=== PATIENT | female | born 1940 | race African-American/Black ===

== ENCOUNTER 2016-11-14 09:56 | Emergency (ER) | payer OTHER, BC ==
[~2016-11-14] VITALS: Ht 170.2 cm; Wt 80.7 kg
--- NOTE | ~2016-11-14 | EKG ---
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 : 1940 Requested By: Jovani Zamora Order Number: [id number] MD: Delano Robin Measurements Intervals [place] Rate: 97 P: 240 SD: 210 QRS: -30 QRSD: 98 T: 149 QT: 355 QTc: 451 Interpretive Statements Sinus or ectopic atrial rhythm Borderline prolonged SD interval Abnormal R-wave progression, early transition LVH with secondary repolarization abnormality Compared to ECG 02/01/2016 17:47:00 no significant change was found Electronically Signed On 11-15-2016 8:48:06 CDT by Delano Robin [email or web address] <ELECTRONICALLY SIGNED> By: Delano Robin MD, [facility] 11/15/16 0848 1012 1012 Delano Robin MD, [facility] /EPI
[~2016-11-14 09:56] MED LIST: ACETAMINOPHEN325 M1 PO; ALEVE220 MG PO; AMBIEN 10 MG TA10 MG PO; AMBIEN 5 MG TABL5 M1 PO; APAP500; APAP500 PO; ASA81BEC PO; ATORVASTATIN CA10 MG PO; AZO CRANBERRY250 MG PO; BACTRIM DS TAB1 EACH PO; BENADRYL25 MG PO; BISACODYL SUPP10 MG RECTAL; BYSTOLIC 5 MG5 M1 PO; BYSTOLIC20 MG PO; CADUET 10 MG-11 EACH PO; CADUET 5 MG-101 EACH PO; CEFTIN 250 MG250 MG; CEFTIN 250 MG250 MG PO; CENTRUM SILVER1 EAC4 PO; CIPRO250 M1 PO; CLONIDINE HCL0.3 M2 PO; CLONIDINE HCL0.3 M3 PO; COLACE100 MG PO; COUMADIN 4 MG TA4 M1 PO; COUMADIN 5 MG TA5 M1 PO; COZAAR 50 MG TA50 M2 PO; CYMBALTA30 MG PO; DESYREL PO; DIABETA PO; DILAUDID 2 MG TA2 MG PO; DILAUDID 4 MG TA4 M1 PO; DILAUDID 4 MG TA4 MG PO; DIOVAN PO; DIOVAN320 MG PO; DOXYCYCLINE 10100 MG PO; EFFEXOR PO; EFFEXOR XR150 MG PO; EFFEXOR XR75 MG PO; ENOXAPARIN40 MG/0.1 SUBQ; EXCELON PATCH; EXELON 9.5 MG9.5 MG TD; EXELON1 EACH TD; FLAGYL500 M1 PO; FLORANEX PACKET1 GM PO; GLYBURID-METFO1 EAC3 PO; GRALISE600 MG PO; HYDRALAZINE 2525 MG PO; HYDROXYZINE HCL10 M1 PO; IMDUR 60 MG TAB60 M1 PO; INTRATHECAL MED; INTRATHECAL MED INTRATHECA; IRON325 PO; KEFLEX500 MG PO; KLOR-CON 1010 MEQ PO; LANTUS SUBQ; LASIX 40 MG TAB40 M2 PO; LEVAQUIN 500 M500 M2 PO; LEVEMIR SUBQ; LEVEMIR100 UNIT/1 SUBQ; LIORESAL 10 MG10 MG PO; LIPITOR10 MG PO; LOW DOSE ASPIRI81 M1 PO; LYRICA PO; LYRICA100 MG PO; MAG-AL PLUS SUS30 ML PO; MEDROLDOSEPACK PO; MICONAZOLE NITR45 G1 TOP; MILK OF MA2400 MG/10 PO; MIRALAX17 GM PO; MULTIVITAMINS PO; NEPHROCAPS SOFT1 CAP PO; NORVASC10 MG PO; NORVASC5 MG PO; NOVOLIN R100 UNIT/3; NOVOLOG100 UNIT/1 SUBQ; OXYCONTIN10 M1 PO; OXYCONTIN10 MG PO; POTASSIUM20 PO; PROTONIX40 M1 PO; SENNA PO; SENNA8.6 MG PO; SEROQUEL 50 MG50 MG PO; SILVADENE20 GM TOP; THERA-M CAPLET1 EACH PO; TRAMADOL 50 MG50 MG PO; TRANDATE 200 M200 MG PO; TRAZODONE HCL100 MG PO; TRIAMCINOLONE A80 G2 TOP; TYLENOL325 MG PO; VAN500AD IV; VITAMINC500 PO; VOLTAREN GEL 1100 G1 TOP; VOLTAREN GEL 1100 G2 TOP; XARELTO15 MG; ZANAFLEX4 MG PO; ZYVOX600 MG PO
[2016-11-14] MEDS ORDERED: CARVEDILOL12.5 MG PO (10:11)
[2016-11-14] MEDS ORDERED: LASIX 40 MG TAB40 M2 PO (10:14)
[2016-11-14] MEDS ORDERED: ARICEPT 5 MG TAB5 MG PO (10:14)
[2016-11-14] MEDS ORDERED: DIPHENHYDRAMINE25 M3 PO (10:15)
[2016-11-14 10:37] LABS: ABSOLUTE NEUTROPHILS 8.9 thou/uL (1.4-8.2); BASOPHILS 1.1 % (0.0-2.0); EOSINOPHILS 2.4 % (0.0-3.0); HEMATOCRIT 31.1 % (37.0-47.0); HEMOGLOBIN 10.2 gm/dL (12.0-15.0); LYMPHOCYTES 13.3 % (24.0-44.0); MANUAL DIFF NO; MCH 29.8 pg (26.0-34.0); MCHC 32.9 g/dL (28.0-37.0); MCV 90.5 fL (80.0-100.0); PLATELET COUNT 322 thou/uL (150-400); POLYS 72.2 % (36.0-66.0); RBC 3.44 mil/uL (4.20-5.00); WBC 12.3 thou/uL (4.0-11.0)
[2016-11-14 10:44] LABS: CALCIUM 8.9 mg/dL (8.5-10.1); CREATININE 4.1 mg/dL (0.6-1.0); POTASSIUM 3.8 mmol/L (3.5-5.1)
[2016-11-14 10:52] LABS: APTT 41.8 Seconds (24.5-32.8); INR 2.3; PROTIME 23.7 Seconds (9.3-11.4)
[2016-11-14 10:56] LABS: TROPONIN-I 0.07 ng/mL (<0.04-0.07)
[2016-11-14 13:19] LABS: URINE BILIRUBIN NEGATIVE (Negative); URINE BLOOD 2+ (Negative); URINE COLOR YELLOW; URINE GLUCOSE-RANDOM* TRACE (Negative); URINE KETONES NEGATIVE (Negative); URINE NITRITE NEGATIVE (Negative); URINE PROTEIN (DIPSTICK) 2+ (Negative); URINE SPECIFIC GRAVITY 1.015 (1.003-1.035); URINE UROBILINOGEN 0.2 E.U./dl (0.2-1.0)
[2016-11-14 13:31] LABS: BACTERIA >30 Many /HPF (None Seen); CASTS None Seen /LPF (None Seen); CRYSTALS None Seen /LPF (None Seen); SQUAMOUS 0-3 Few /LPF (0-3); URINE RBC 3-10 Few /HPF (0-2); URINE WBC 6-15 Few /HPF (0-5)
[2016-11-14] MEDS ORDERED: MACROBID 100 M100 M1 PO (13:54)
[2016-11-14] MEDS ORDERED: DOXYCYCLINE 10100 MG PO (14:00)
[2016-11-14 15:05] VITALS: BP 176/48
== END 2016-11-14 15:31 | disposition short-term general hospital (02) ==
LOC: ER 09:56
PROVIDERS: Nurse Practitioner
DX: N39.0 Urinary tract infection, site not specified (principal); I13.10 Hypertensive heart and chronic kidney disease without heart failure, with stage 1 through stage 4 chronic kidney disease, or unspecified chronic kidney disease; E11.22 Type 2 diabetes mellitus with diabetic chronic kidney disease; N18.3 Chronic kidney disease, stage 3 (moderate); E78.00 Pure hypercholesterolemia, unspecified; F32.9 Major depressive disorder, single episode, unspecified; K21.9 Gastro-esophageal reflux disease without esophagitis; Z79.4 Long term (current) use of insulin; Z90.710 Acquired absence of both cervix and uterus; Z90.49 Acquired absence of other specified parts of digestive tract; Z96.651 Presence of right artificial knee joint; Z98.890 Other specified postprocedural states; Z86.718 Personal history of other venous thrombosis and embolism; F03.90 Unspecified dementia, unspecified severity, without behavioral disturbance, psychotic disturbance, mood disturbance, and anxiety; Z88.1 Allergy status to other antibiotic agents; Z88.8 Allergy status to other drugs, medicaments and biological substances

== ENCOUNTER → 2018-03-20 | Outpatient (CLI) | payer OTHER, BC ==
[~2018-03-20] MED LIST changes: +ARICEPT 5 MG TAB5 MG PO; +CARVEDILOL12.5 MG PO; +DIPHENHYDRAMINE25 M3 PO; +MACROBID 100 M100 M1 PO
== END ==
LOC: HYPER 07:21
DX: E11.622 Type 2 diabetes mellitus with other skin ulcer (principal); L89.322 Pressure ulcer of left buttock, stage 2; L89.312 Pressure ulcer of right buttock, stage 2; L98.411 Non-pressure chronic ulcer of buttock limited to breakdown of skin; E11.621 Type 2 diabetes mellitus with foot ulcer; L89.624 Pressure ulcer of left heel, stage 4; L97.422 Non-pressure chronic ulcer of left heel and midfoot with fat layer exposed; E11.22 Type 2 diabetes mellitus with diabetic chronic kidney disease; I13.2 Hypertensive heart and chronic kidney disease with heart failure and with stage 5 chronic kidney disease, or end stage renal disease; I50.9 Heart failure, unspecified; N18.4 Chronic kidney disease, stage 4 (severe); I82.499 Acute embolism and thrombosis of other specified deep vein of unspecified lower extremity; D63.1 Anemia in chronic kidney disease; G82.20 Paraplegia, unspecified; I25.10 Atherosclerotic heart disease of native coronary artery without angina pectoris; M19.90 Unspecified osteoarthritis, unspecified site; F03.90 Unspecified dementia, unspecified severity, without behavioral disturbance, psychotic disturbance, mood disturbance, and anxiety; F33.9 Major depressive disorder, recurrent, unspecified; Z73.6 Limitation of activities due to disability; Z79.84 Long term (current) use of oral hypoglycemic drugs; Z99.2 Dependence on renal dialysis; Z79.4 Long term (current) use of insulin

== ENCOUNTER 2018-04-03 15:24 | Inpatient (IN) | payer OTHER, BC ==
[~2018-04-03] VITALS: Ht 170.2 cm; Wt 88.5 kg
--- NOTE | ~2018-04-03 | HC ---
[facility] [place] [address] [place] [address] CONSULTATION Name: ANGELITA MELISSA Room #: 212-P ADM IN M.R.#: [id number] Admission: 04/03/18 Attend Phys: Javi Meyer MD Discharge: Date of : 38 Report #: [id number] THIS REPORT FOR: //name// CC: Wilbert Hernández DATE OF SERVICE: 04/04/2018 CHIEF COMPLAINT: Sacral gluteal and right heel pressure ulceration. HISTORY OF PRESENT ILLNESS: This is a 77-year-old female patient whom I have seen in the past. She has had increased pain to the sacral gluteal region presented to the Emergency Department and was admitted for further evaluation. She was also noted to have a worsening ulcer of her left heel and I have been asked to see her with regard to wound care. She has been seen by my partner, Dr. Hernández, last seen approximately 2 weeks ago. PAST MEDICAL HISTORY: Positive for multiple back surgeries, previous closed head injury, cholecystectomy, right knee replacement, chronic kidney disease requiring hemodialysis, dementia, DVT, chronic pain, depression, diabetes, thalassemia minor, previous hysterectomy, chronic anemia and gastroesophageal reflux. SOCIAL HISTORY: Negative for alcohol or tobacco use. She is , accompanied by her . FAMILY HISTORY: Unremarkable. MEDICATIONS: Include ascorbic acid, trazodone, Coumadin, carvedilol, Aricept, gabapentin, losartan, venlafaxine, Depakote, hydralazine and olanzapine. ALLERGIES: Include ZOLPIDEM, AMITRIPTYLINE, METHADONE, METOCLOPRAMIDE, LEVAQUIN, CELEBREX, ARIPIPRAZOLE, PIROXICAM and HYDROCHLOROTHIAZIDE. REVIEW OF SYSTEMS: CONSTITUTIONAL: The patient has had some fever and chills. EARS, NOSE AND THROAT: The patient denies earache, nasal drainage or sore throat. EYES: The patient denies any visual changes, redness or drainage. ENT: The patient denies earache, nasal drainage or sore throat. CARDIOVASCULAR: No chest pain, palpitations or diaphoresis. PULMONARY: The patient denies cough or shortness of breath. GASTROINTESTINAL: The patient denies nausea or abdominal pain. ORTHOPEDIC: The patient complains of pain in the sacral gluteal region as well [address] [address] CONSULTATION Name: ANGELITA MELISSA Room #: 212-P [facility] IN M.R.#: [id number] Admission: 04/03/18 Attend Phys: Javi Meyer MD Discharge: Date of : 38 Report #: [id number] as note some discomfort in her left heel area. Other systems in a 14-point review of systems are negative. PHYSICAL EXAMINATION: VITAL SIGNS: At this time include temperature is 36.8, pulse 81, respiration of 18 and blood pressure 117/30. GENERAL: This is a chronically ill-appearing female patient who appears to be in moderate discomfort. HEENT: Head normocephalic. Nose and throat are clear. NECK: Supple. LUNGS: Clear. HEART: Irregular without murmur. ABDOMEN: Soft. Bowel sounds present. Sacral gluteal region demonstrates scattered ulcerations across the sacral gluteal region and some of this is moisture-associated dermatitis. There may be some stage 2 and stage 3 pressure ulceration component to this as well. EXTREMITIES: Lower extremities demonstrate a foul smelling area involving her left posterior heel. There is a little bit of granulation in the center moderate eschar surrounding. NEUROLOGICAL: The patient is alert and does move all 4 extremities spontaneously. LABORATORY DATA: Includes white blood cell count of 10.1, hemoglobin is 6.0 and hematocrit of 18.4. Sodium 133, potassium 5.4, chloride 98, BUN 40 and creatinine 3.9. Total protein is 6.9. Albumin is low at 2.3. INR is elevated at 7.9. RADIOLOGICAL DATA: X-ray evaluation of the left foot demonstrates underlying osteomyelitis being difficult to exclude. There is thickening and irregularity to the posterior and plantar calcaneus. MRI demonstrates an abnormal signal through the posterior root of the calcaneus consistent with osteomyelitis. This area of osteomyelitis involving the Achilles tendon insertion felt to represent partial tearing from infection, soft tissue edema extends to the posterior and lateral soft tissues from soft tissue infection. CLINICAL IMPRESSION: 1. Moisture-associated dermatitis and stage 3 pressure ulcer of the sacral gluteal region bilaterally. 2. Stage 4 pressure ulceration to the left posterior heel with underlying calcaneal osteomyelitis. 3. No evidence of obvious peripheral arterial disease based on lower extremity ultrasound showing multiphasic bilateral arterial blood flow without evidence of significant stenosis. 4. Uncontrolled diabetes mellitus. 5. Severe anemia. [address] [address] CONSULTATION Name: ANGELITA MELISSA Room #: 212-P ADM IN M.R.#: [id number] Admission: 04/03/18 Attend Phys: Javi Meyer MD Discharge: Date of : 38 Report #: [id number] 6. Moderate protein-calorie malnutrition. RECOMMENDATIONS: At this point in time, we will recommend Silvadene-morphine, compound mixed with zinc oxide to the sacral gluteal regions to be applied 3 times per day and as needed. We will need local care to the heel, Dakin's moist gauze dressing would be appropriate for now. She will likely require some surgical debridement of the heel and calcaneus. She may ultimately require below-knee amputation. There appears to be no suggestion that any vascular intervention is required at this time, she will need aggressive nutritional support and intravenous antibiotics have been started. She is about to begin dialysis tonight and I have discussed her care with nurses at the bedside as well discussed details with Dr. Tim Millan. I appreciate being asked to see her in consultation. <ELECTRONICALLY SIGNED> By: Arturo Collins MD 04/07/18 0018 2040 [id number] Arturo Collins MD /nt
--- NOTE | ~2018-04-03 | HC ---
[facility] [place] [address] [place] [address] CONSULTATION Name: ANGELITA MELISSA Room #: 212-P ADM IN M.R.#: [id number] Admission: 04/03/18 Attend Phys: Javi Meyer MD Discharge: Date of : 38 Report #: [id number] THIS REPORT FOR: //name// CC: Wilbert Hernández REASON FOR CONSULTATION: End-stage renal disease. REASON FOR PRESENTATION: Wound check. HISTORY OF PRESENT ILLNESS: This is a very well-known patient to me. She is a 77-year-old with end-stage renal disease due to long-standing diabetes mellitus and hypertension. She is maintained on dialysis, utilizing a right IJ tunneled catheter. She is known to have peripheral vascular disease. She is also known to have bilateral chronic heel ulcers, osteomyelitis on the left side for which she required prolonged hospitalizations at [facility] and then was in a long-term facility receiving antibiotic and got discharged home. She was in her wound clinic yesterday and was advised to visit with the Emergency Room, given the way the wounds looked. It does look like that she has gangrenous changes with blackish discoloration on the left heel. She is wheelchair-ridden. She denies any fever or chills. The patient has a very complicated and rough course at [facility]. She ended up with an ischemic left index and had this amputated. She also had ligation of her AV fistula. She is being currently admitted to further evaluate her wounds and decide about further plans. She is anemic with a hemoglobin of 6.8. I am being consulted to manage her end-stage renal disease issues. PAST MEDICAL HISTORY: 1. Diabetes mellitus. 2. Hypertension. 3. End-stage renal disease, maintained on hemodialysis every Monday, Monday and Monday. 4. Peripheral vascular disease. 5. Recent osteomyelitis of the left heel. 6. DVT. 7. Ischemic left index finger. 8. Chronic pain with an implanted pain pump, status post removal. 9. Back surgeries. 10. Rotator cuff surgery. 11. Right knee replacement. 12. Depression. 13. Thalassemia minor. 14. Hysterectomy. 15. Umbilical hernia repair. [address] [address] CONSULTATION Name: ANGELITA MELISSA Room #: 212-P [facility] IN M.R.#: [id number] Admission: 04/03/18 Attend Phys: Javi Meyer MD Discharge: Date of : 38 Report #: [id number] FAMILY HISTORY: No known end-stage renal disease in the family. SOCIAL HISTORY: She resides with her . No drug or alcohol abuse. HOME MEDICATIONS: 1. Warfarin. 2. Hydralazine. 3. Carvedilol. 4. Gabapentin. 5. Levemir insulin. 6. Losartan. REVIEW OF SYSTEMS: GENERAL: No fever or chills. CARDIOVASCULAR: No chest pain or palpitation. PULMONARY: No cough or hemoptysis. GASTROINTESTINAL: No nausea or vomiting. MUSCULOSKELETAL: As per the history of present illness. PHYSICAL EXAMINATION: GENERAL: She is alert, oriented, in no apparent distress. VITAL SIGNS: Blood pressure is 107/49. Temperature 36.8. HEAD AND NECK: No jugular venous distention. CHEST: Right IJ tunneled catheter. CARDIOVASCULAR: No rub detected, soft systolic murmur is present. ABDOMEN: Soft, nontender. LOWER EXTREMITIES: +3 edema. Dressing applied over the left ankle. I did not examine her wounds; however, I looked at the documented pictures taken by the wound care and saved in file. LABORATORY DATA: Reviewed. Hemoglobin 6.8, white blood cell count 11.3. Sodium 131, BUN is 35, creatinine is 3.6. ASSESSMENT, IMPRESSION AND PLAN: 1. End-stage renal disease. 2. Chronic wounds. 3. Osteomyelitis of the left ankle. 4. Peripheral vascular disease. 5. Deep venous thrombosis. 6. Status post ligation of left AV fistula with an ischemic index finger. 7. Dementia. 8. Chronic pain. 9. Anemia. 10. We will arrange for the patient to have her usual dialysis today. 11. Transfuse with 1 unit of blood. 12. Wound care evaluation. [address] [address] CONSULTATION Name: ANGELITA MELISSA Room #: 212-P [facility] IN M.R.#: [id number] Admission: 04/03/18 Attend Phys: Javi Meyer MD Discharge: Date of : 38 Report #: [id number] 13. We will have to make an ultimate plan for her wounds given the extensive history, osteomyelitis, will likely need an amputation; however, we will defer the decision to the admitting team and wound care. By: 0723 0746 Velia Tobar MD /nt
--- NOTE | ~2018-04-03 | O ---
[facility] [place] [address] [address] OPERATIVE REPORT Name: ANGELITA MELISSA Room #: 212-P ADM IN M.R.#: [id number] Admission: 04/03/18 Attend Phys: Javi Meyer MD Discharge: Date of : 38 Report #: [id number] THIS REPORT FOR: //name// CC: Wilbert Hernández DATE OF SERVICE: 04/06/2018 PREOPERATIVE DIAGNOSIS: Chronic infected left heel ulcer with associated osteomyelitis. POSTOPERATIVE DIAGNOSIS: Chronic infected left heel ulcer with associated osteomyelitis. PROCEDURE: Soft tissue and bony debridement of left heel ulcer. SURGEON: Hung Marquez MD. INDICATIONS: This frail 77-year-old female with chronic renal disease and on chronic dialysis has problems with skin breakdown and ulcers in several areas. The principal problem involves the left heel where she has a chronic soft tissue ulcer with bony exposure and probably some osteomyelitis. This issue has been discussed with the patient and her and I believe they have reviewed the option of below-knee amputation. At this point, the patient and are reluctant to consider amputation and wished to try to continue more conservative management. I have been asked to see the patient for surgical debridement. I discussed with the patient and her that it is quite unlikely this will ever heal and completely, but we can certainly clean up the necrotic debris and see whether we can establish a wound, which is at least a clean and minimally infected, which might be manageable. Eventually, I think below knee amputation is the only reasonable option. They seem to understand, but wished to proceed with a limited debridement today. DESCRIPTION OF PROCEDURE: The patient was taken to the operating room where she was placed under brief anesthetic. She was turned to the right lateral decubitus position. The left lower leg, foot and ankle were thoroughly prepped and draped. The current preoperative ulcer is about 6-8 cm in diameter with a rim of necrotic skin and subcutaneous tissue. This necrotic skin and subcutaneous tissue was excised back to a bleeding margin of skin. This created a total ulcer size of about 10 cm in diameter. In the midportion, the posterior calcaneus is exposed. Some of the superficial periosteum and soft tissue in this region was clearly necrotic and was excised. About 5 mm of bone was also excised from the calcaneus getting down into a better bleeding subcortical level [address] [address] OPERATIVE REPORT Name: BELÉNANGELITA OLIVIER Room #: 212-P ADM IN M.R.#: [id number] Admission: 04/03/18 Attend Phys: Javi Meyer MD Discharge: Date of : 38 Report #: [id number] of bone. This area of bone seems to be well perfused and does not seem to be significantly involved with infection. The wound was aggressively irrigated. The surrounding subcutaneous tissues were elevated to some extent from the bone trying to allow this to close over the exposed bone to some extent if possible. I felt the best approach at this point was for a wound VAC wound management process. A wound VAC was applied and then, this was overdressed with multiple layers of soft cotton soft roll dressing and a loosely applied [place] wrap. The patient was awakened and returned to recovery room in good condition. <ELECTRONICALLY SIGNED> By: Hung Marquez MD 04/10/18 0755 1412 1446 Hung Marquez MD /nt
--- NOTE | ~2018-04-03 | HC ---
[facility] [place] [address] [address] CONSULTATION Name: ANGELITA MELISSA Room #: 212-P ADM IN M.R.#: [id number] Admission: 04/03/18 Attend Phys: Javi Meyer MD Discharge: Date of : 38 Report #: [id number] THIS REPORT FOR: //name// CC: Wilbert Hernández DATE OF SERVICE: 04/05/2018 REASON FOR CONSULTATION: Left calcaneus osteomyelitis. HISTORY OF PRESENT ILLNESS: The patient is a 77-year-old female with chronic end-stage renal disease who was brought in to the Emergency Department by her . The history is obtained per the patient's as she is sleepy and does not respond to my examination. She apparently was at [facility] for about 5 weeks, then went home for a week or two, which her was changing her dressing and he noticed a black discoloration and foul odor along with home health nursing noticed this as well. She has been also followed by Dr. Parvez Hernández. REVIEW OF SYSTEMS: MUSCULOSKELETAL: Denies other extremity complaints. NEUROLOGIC: Denies numbness or tingling. Again, this history is obtained from the patient's . PAST MEDICAL HISTORY: Significant for end-stage renal disease. I believe she has a history of dementia, history of methicillin-resistant Staphylococcus aureus, hypertension. ALLERGIES: AMITRIPTYLINE, ARIPIPRAZOLE, CELEBREX, HYDROCHLOROTHIAZIDE, LEVOFLOXACIN, METHADONE, METOCLOPRAMIDE, PIROXICAM AND ZOLPIDEM. MEDICATIONS: The patient's MAR was reviewed, which shows trazodone, olanzapine, insulin, donepezil, vitamin K, Coumadin, Silvadene, fentanyl, vancomycin, venlafaxine, gabapentin, valproic sodium, ascorbic acid, piperacillin/tazobactam, ondansetron. PAST SURGICAL HISTORY: Pain pump implantation, back surgeries x 2, rotator cuff surgery, cholecystectomy, right knee replacement, hysterectomy. SOCIAL HISTORY: The is at her bedside, she is . She does not ambulate and has not ambulated for a year, has no smoking history. LABORATORY DATA: Done on 04/05/2018 show white blood cell count 13.5, hemoglobin 6.8, hematocrit 20.4, platelet count 349. INR is 4.3. Chemistry is [address] [address] CONSULTATION Name: ANGELITA MELISSA Room #: 212-P [facility] IN ..#: [id number] Admission: 04/03/18 Attend Phys: Javi Meyer MD Discharge: Date of : 38 Report #: [id number] grossly abnormal. PHYSICAL EXAMINATION: GENERAL: The patient is sleepy. She does not respond. VITAL SIGNS: Temperature is 36.8, heart rate 87, respiratory rate 18, blood pressure 105/44, and pulse oximetry is 100%. EXTREMITIES: Examination of her left lower extremity shows a wound measuring approximately 5 cm with necrosis and foul odor. DIAGNOSTIC DATA: Three views, AP, lateral and oblique, of the left foot show diffuse bony changes in the hindfoot and midfoot. MRI of the foot shows osteomyelitis involving the calcaneus. The MRI was reviewed by myself as well as report. IMPRESSION AND PLAN: Left heel osteomyelitis. She is currently on antibiotics. Her INR today was 4.3. We will tentatively put her on the surgery schedule for tomorrow; however, we will require her INR to be more therapeutic in order to avoid significant complications. I discussed the options of debridement or amputation. The wishes to proceed with debridement. My partner, Dr. Hung Marquez, may perform the debridement tomorrow or I may perform this weekend depending on her laboratory status. Thank you very much for allowing me to participate in the care of this patient. I will tentatively make her n.p.o. after midnight. By: 1527 1737 Lizbeth Smith MD /nt
[2018-04-03 15:27] VITALS: BP 92/44
[2018-04-03] MEDS ORDERED: GABAPENTIN 100100 MG PO (16:10)
[2018-04-03] MEDS ORDERED: LOSARTAN POTAS100 MG PO (16:11)
[2018-04-03] MEDS ORDERED: NORCO 5-325 TA1 EACH PO (16:11)
[2018-04-03] MEDS ORDERED: EFFEXOR XR75 MG PO (16:12)
[2018-04-03] MEDS ORDERED: DEPAKOTE ER500 MG PO (16:12)
[2018-04-03] MEDS ORDERED: OLANZAPINE7.5 MG PO (16:13)
[2018-04-03] MEDS ORDERED: HYDRALAZINE 5050 MG PO (16:13)
[2018-04-03 18:15] LABS: HEMATOCRIT 20.4 % (37.0-47.0); HEMOGLOBIN 6.8 gm/dL (12.0-15.0); MCHC 33.4 g/dL (28.0-37.0); PLATELET COUNT 353 thou/uL (150-400); RBC 2.19 mil/uL (4.20-5.00); WBC 11.3 thou/uL (4.0-11.0)
[2018-04-03 18:22] LABS: CALCIUM 8.8 mg/dL (8.5-10.1); CREATININE 3.6 mg/dL (0.6-1.0)
[2018-04-03 18:28] LABS: ALBUMIN 2.3 g/dL (3.4-5.0); DIRECT BILIRUBIN 0.1 mg/dL (<0.1-0.3); TOTAL BILIRUBIN 0.5 mg/dL (<0.1-1.0); TOTAL PROTEIN 6.9 g/dL (6.4-8.2)
[2018-04-03 18:36] LABS: ANISOCYTOSIS 1+
[2018-04-03 21:45] VITALS: BP 127/55
[2018-04-03 22:41] VITALS: BP 94/36
[2018-04-04 00:22] VITALS: BP 105/48
[2018-04-04 04:45] VITALS: BP 107/49
[2018-04-04 06:36] LABS: PROTIME 81.5 Seconds (9.3-11.4)
[2018-04-04 07:42] LABS: MCH 30.9 pg (26.0-34.0); RBC 1.93 mil/uL (4.20-5.00); WBC 10.1 thou/uL (4.0-11.0)
[2018-04-04 07:44] LABS: MCHC 32.4 g/dL (28.0-37.0); MCV 95.4 fL (80.0-100.0); RDW 19.2 % (10.5-14.5)
[2018-04-04 07:50] LABS: CALCIUM 8.6 mg/dL (8.5-10.1); CREATININE 3.9 mg/dL (0.6-1.0); POTASSIUM 5.4 mmol/L (3.5-5.1)
[2018-04-04 08:08] LABS: INR 7.9
[2018-04-04 08:10] LABS: HEMATOCRIT 18.4 % (37.0-47.0)
[2018-04-04 08:23] VITALS: BP 150/45
[2018-04-04 15:33] VITALS: BP 143/52
[2018-04-04 19:35] VITALS: BP 117/30
[2018-04-04 20:36] VITALS: BP 110/71; BP 117/90; BP 149/64
[2018-04-05 05:09] LABS: CALCIUM 8.5 mg/dL (8.5-10.1)
[2018-04-05 05:26] LABS: PROTIME 44.9 Seconds (9.3-11.4)
[2018-04-05 05:44] LABS: CREATININE 2.7 mg/dL (0.6-1.0); POTASSIUM 3.9 mmol/L (3.5-5.1)
[2018-04-05 05:46] LABS: HEMOGLOBIN 6.8 gm/dL (12.0-15.0); MCHC 33.3 g/dL (28.0-37.0)
[2018-04-05 05:50] LABS: HEMATOCRIT 20.4 % (37.0-47.0); MCH 30.3 pg (26.0-34.0); MCV 91.1 fL (80.0-100.0); RBC 2.24 mil/uL (4.20-5.00); RDW 19.2 % (10.5-14.5); WBC 13.5 thou/uL (4.0-11.0)
[2018-04-05 05:55] LABS: INR 4.3
[2018-04-05 06:05] VITALS: BP 140/64
[2018-04-05 07:45] VITALS: BP 121/43
[2018-04-05 11:03] VITALS: BP 105/44
[2018-04-05 15:14] VITALS: BP 106/44
[2018-04-05 20:30] VITALS: BP 135/50
[2018-04-06] VITALS (13 sets, daily range): BP systolic 105–1085; BP diastolic 51–97
[2018-04-06 04:54] LABS: HEMOGLOBIN 6.5 gm/dL (12.0-15.0); RDW 18.9 % (10.5-14.5); WBC 9.9 thou/uL (4.0-11.0)
[2018-04-06 04:57] LABS: MCH 31.5 pg (26.0-34.0); MCV 92.6 fL (80.0-100.0); RBC 2.05 mil/uL (4.20-5.00)
[2018-04-06 05:04] LABS: PROTIME 17.4 Seconds (9.3-11.4)
[2018-04-06 05:15] LABS: ALBUMIN 1.8 g/dL (3.4-5.0); CALCIUM 8.2 mg/dL (8.5-10.1); CREATININE 3.6 mg/dL (0.6-1.0); MAGNESIUM 1.7 mg/dL (1.8-2.4); PHOSPHORUS 4.7 mg/dL (2.5-4.9); POTASSIUM 4.2 mmol/L (3.5-5.1)
[2018-04-06 05:32] LABS: INR 1.7
[2018-04-06 05:34] LABS: FOLIC ACID 4.8 ng/mL (8.6-58.9)
[2018-04-06 13:20] LABS: HEMATOCRIT 27.5 % (37.0-47.0); MCH 29.7 pg (26.0-34.0); MCHC 32.7 g/dL (28.0-37.0); MCV 90.9 fL (80.0-100.0); RBC 3.03 mil/uL (4.20-5.00); RDW 17.5 % (10.5-14.5); WBC 11.5 thou/uL (4.0-11.0)
[2018-04-06 13:39] LABS: CALCIUM 8.7 mg/dL (8.5-10.1); POTASSIUM 3.6 mmol/L (3.5-5.1)
[2018-04-06 13:40] LABS: CREATININE 1.6 mg/dL (0.6-1.0)
[2018-04-07 06:34] LABS: HEMOGLOBIN 7.3 gm/dL (12.0-15.0); MCH 30.7 pg (26.0-34.0); MCV 92.9 fL (80.0-100.0); RBC 2.37 mil/uL (4.20-5.00); RDW 18.1 % (10.5-14.5); WBC 10.2 thou/uL (4.0-11.0)
[2018-04-07 06:49] LABS: INR 1.2; PROTIME 12.7 Seconds (9.3-11.4)
[2018-04-07 06:52] LABS: ALBUMIN 1.8 g/dL (3.4-5.0); CALCIUM 8.2 mg/dL (8.5-10.1)
[2018-04-07 06:57] LABS: POTASSIUM 4.7 mmol/L (3.5-5.1)
[2018-04-07 06:58] LABS: CREATININE 2.6 mg/dL (0.6-1.0)
[2018-04-07 07:48] VITALS: BP 171/55
[2018-04-07 11:10] VITALS: BP 111/47
[2018-04-07 15:35] VITALS: BP 113/45
[2018-04-07 20:51] VITALS: BP 156/70
[2018-04-08 06:03] VITALS: BP 144/64
[2018-04-08 08:40] VITALS: BP 164/68
[2018-04-08 11:40] VITALS: BP 153/92
[2018-04-08 15:35] VITALS: BP 158/113
[2018-04-08 19:55] VITALS: BP 161/96
[2018-04-09 04:45] VITALS: BP 125/65
[2018-04-09 05:48] LABS: HEMATOCRIT 24.2 % (37.0-47.0); HEMOGLOBIN 7.8 gm/dL (12.0-15.0); MCH 30.3 pg (26.0-34.0); MCHC 32.2 g/dL (28.0-37.0); MCV 94.1 fL (80.0-100.0); RBC 2.57 mil/uL (4.20-5.00); RDW 19.3 % (10.5-14.5); WBC 11.1 thou/uL (4.0-11.0)
[2018-04-09 06:01] LABS: ALBUMIN 1.8 g/dL (3.4-5.0); CALCIUM 8.4 mg/dL (8.5-10.1); POTASSIUM 5.6 mmol/L (3.5-5.1)
[2018-04-09 06:02] LABS: CREATININE 4.5 mg/dL (0.6-1.0)
[2018-04-09 07:59] VITALS: BP 119/64
[2018-04-09 11:10] VITALS: BP 124/64
[2018-04-09 16:10] VITALS: BP 106/49
[2018-04-09 20:50] VITALS: BP 124/58
[2018-04-10 04:43] VITALS: BP 140/79
[2018-04-10 05:13] LABS: ALBUMIN 1.8 g/dL (3.4-5.0); CALCIUM 8.3 mg/dL (8.5-10.1); PHOSPHORUS 4.1 mg/dL (2.5-4.9)
[2018-04-10 05:16] LABS: CREATININE 3.3 mg/dL (0.6-1.0); POTASSIUM 4.6 mmol/L (3.5-5.1)
[2018-04-10 05:28] LABS: HEMATOCRIT 24.3 % (37.0-47.0); HEMOGLOBIN 7.8 gm/dL (12.0-15.0); MCH 30.4 pg (26.0-34.0); MCHC 32.4 g/dL (28.0-37.0); MCV 93.9 fL (80.0-100.0); RBC 2.58 mil/uL (4.20-5.00); RDW 19.4 % (10.5-14.5); WBC 11.2 thou/uL (4.0-11.0)
[2018-04-10 08:31] VITALS: BP 161/94
[2018-04-10 12:13] VITALS: BP 153/68
[2018-04-10 13:09] LABS: % SATURATION 36 % (20-39); IRON 43 ug/dL (50-170); TIBC 118 ug/dL (250-450)
[2018-04-10 21:46] VITALS: BP 152/81
[2018-04-11] VITALS (7 sets, daily range): BP systolic 101–219; BP diastolic 50–100
[2018-04-11 05:53] LABS: HEMATOCRIT 24.8 % (37.0-47.0); HEMOGLOBIN 8.3 gm/dL (12.0-15.0); MCH 31.3 pg (26.0-34.0); MCHC 33.4 g/dL (28.0-37.0); MCV 93.8 fL (80.0-100.0); RBC 2.64 mil/uL (4.20-5.00); RDW 20.2 % (10.5-14.5); WBC 11.3 thou/uL (4.0-11.0)
[2018-04-11 06:10] LABS: CALCIUM 8.7 mg/dL (8.5-10.1); MAGNESIUM 1.8 mg/dL (1.8-2.4); POTASSIUM 5.4 mmol/L (3.5-5.1)
[2018-04-11 06:16] LABS: CREATININE 4.4 mg/dL (0.6-1.0)
[2018-04-11] MEDS ORDERED: VANCOMYCIN1 GM/1001 IV (12:02)
[2018-04-11] MEDS ORDERED: PROBIOTIC1 EAC1 PO (12:02)
[2018-04-11] MEDS ORDERED: ZOSYN 3/0.373.375 G3 IV (12:02)
== END 2018-04-11 16:54 | DRG 853 ==
LOC: ER 15:24 → 2N 19:23 → EROBS 19:23 → 2N 20:55
PROVIDERS: Anesthesiology; Emergency Medicine; Hospitalist; Internal Medicine; Internal Medicine Nephrology; Nurse Practitioner Family; Orthopaedic Surgery Foot and Ankle Surgery; Orthopaedic Surgery Hand Surgery
PROC: 5A1D70Z Performance of Urinary Filtration, Intermittent, Less than 6 Hours Per Day (ICD-10-PCS; principal; 2018-04-04)
PROC: 5A1D70Z Performance of Urinary Filtration, Intermittent, Less than 6 Hours Per Day (ICD-10-PCS; 2018-04-06)
PROC: 0QBM0ZZ Excision of Left Tarsal, Open Approach (ICD-10-PCS; 2018-04-06)
PROC: 30233N1 Transfusion of Nonautologous Red Blood Cells into Peripheral Vein, Percutaneous Approach (ICD-10-PCS; 2018-04-06)
PROC: 5A1D70Z Performance of Urinary Filtration, Intermittent, Less than 6 Hours Per Day (ICD-10-PCS; 2018-04-09)
PROC: 5A1D70Z Performance of Urinary Filtration, Intermittent, Less than 6 Hours Per Day (ICD-10-PCS; 2018-04-11)
DX: A41.9 Sepsis, unspecified organism (principal); L89.153 Pressure ulcer of sacral region, stage 3; L89.624 Pressure ulcer of left heel, stage 4; L89.323 Pressure ulcer of left buttock, stage 3; L89.313 Pressure ulcer of right buttock, stage 3; N18.6 End stage renal disease; M86.8X7 Other osteomyelitis, ankle and foot; E44.0 Moderate protein-calorie malnutrition; I12.0 Hypertensive chronic kidney disease with stage 5 chronic kidney disease or end stage renal disease; E78.5 Hyperlipidemia, unspecified; F03.90 Unspecified dementia, unspecified severity, without behavioral disturbance, psychotic disturbance, mood disturbance, and anxiety; G89.29 Other chronic pain; F32.9 Major depressive disorder, single episode, unspecified; K21.9 Gastro-esophageal reflux disease without esophagitis; E11.51 Type 2 diabetes mellitus with diabetic peripheral angiopathy without gangrene; E11.69 Type 2 diabetes mellitus with other specified complication; L30.9 Dermatitis, unspecified; D64.9 Anemia, unspecified; M54.9 Dorsalgia, unspecified; M62.84 Sarcopenia; E11.22 Type 2 diabetes mellitus with diabetic chronic kidney disease; E11.42 Type 2 diabetes mellitus with diabetic polyneuropathy; E11.65 Type 2 diabetes mellitus with hyperglycemia; E53.8 Deficiency of other specified B group vitamins; Z90.49 Acquired absence of other specified parts of digestive tract; Z86.718 Personal history of other venous thrombosis and embolism; Z79.4 Long term (current) use of insulin; Z90.710 Acquired absence of both cervix and uterus; Z88.1 Allergy status to other antibiotic agents; Z88.8 Allergy status to other drugs, medicaments and biological substances; Z87.828 Personal history of other (healed) physical injury and trauma; Z68.30 Body mass index [BMI] 30.0-30.9, adult; Z86.14 Personal history of Methicillin resistant Staphylococcus aureus infection; Z99.2 Dependence on renal dialysis; Z79.899 Other long term (current) drug therapy
CPT/HCPCS: 10081; 32100; 50010; 50101; 50386; 50643; 57091; 57188; 57189; 62110; 62900; 70005

== ENCOUNTER → 2018-06-25 | Outpatient (CLI) | payer OTHER, BC ==
[~2018-06-25] MED LIST changes: +DEPAKOTE ER500 MG PO; +GABAPENTIN 100100 MG PO; +HYDRALAZINE 5050 MG PO; +LOSARTAN POTAS100 MG PO; +NORCO 5-325 TA1 EACH PO; +OLANZAPINE7.5 MG PO; +PROBIOTIC1 EAC1 PO; +VANCOMYCIN1 GM/1001 IV; +ZOSYN 3/0.373.375 G3 IV
[2018-06-25 13:16] LABS: ABSOLUTE NEUTROPHILS 6.7 thou/uL (1.4-8.2); BASOPHILS 0.3 % (0.0-2.0); EOSINOPHILS 7.4 % (0.0-3.0); HEMATOCRIT 38.5 % (37.0-47.0); HEMOGLOBIN 12.3 gm/dL (12.0-15.0); LYMPHOCYTES 19.2 % (24.0-44.0); MCH 30.3 pg (26.0-34.0); MCHC 31.8 g/dL (28.0-37.0); MONOCYTES 9.3 % (1.0-8.0); PLATELET COUNT 316 thou/uL (150-400); POLYS 63.8 % (36.0-66.0); RBC 4.05 mil/uL (4.20-5.00); WBC 10.4 thou/uL (4.0-11.0)
[2018-06-25 13:24] LABS: CALCIUM 9.6 mg/dL (8.5-10.1); CREATININE 3.9 mg/dL (0.6-1.0); POTASSIUM 4.4 mmol/L (3.5-5.1)
[2018-06-25 13:42] LABS: ANISOCYTOSIS 2+; PLATELET ESTIMATE NORMAL
--- NOTE | 2018-06-25 14:04 | NUR ---
PT HERE TO SEE DR. CURTIS. WOUND CARE STAFF REQUESTED BY DR. CURTIS TO SEE PT WELL. DRESSING ON LEFT HEEL REMOVED. LABS DRAWN ORDERED BY DR. CURTIS. PT TO RETURN IN ONE WEEK TO SEE DR. CURTIS.
[2018-06-25 14:06] VITALS: BP 178/77
--- NOTE | 2018-06-25 14:06 | NUR ---
PT TRANSPORTED BY AMBULANCE ACCOMPANIED BY
== END ==
LOC: HYPER 07:25 → OPONC 07:25
PROVIDERS: Specialist
DX: E11.622 Type 2 diabetes mellitus with other skin ulcer (principal); L89.322 Pressure ulcer of left buttock, stage 2; L89.312 Pressure ulcer of right buttock, stage 2; L98.411 Non-pressure chronic ulcer of buttock limited to breakdown of skin; E11.621 Type 2 diabetes mellitus with foot ulcer; L89.624 Pressure ulcer of left heel, stage 4; L97.322 Non-pressure chronic ulcer of left ankle with fat layer exposed; E11.22 Type 2 diabetes mellitus with diabetic chronic kidney disease; I13.2 Hypertensive heart and chronic kidney disease with heart failure and with stage 5 chronic kidney disease, or end stage renal disease; I50.9 Heart failure, unspecified; N18.4 Chronic kidney disease, stage 4 (severe); D63.1 Anemia in chronic kidney disease; G82.20 Paraplegia, unspecified; I25.10 Atherosclerotic heart disease of native coronary artery without angina pectoris; M19.90 Unspecified osteoarthritis, unspecified site; F03.90 Unspecified dementia, unspecified severity, without behavioral disturbance, psychotic disturbance, mood disturbance, and anxiety; F33.9 Major depressive disorder, recurrent, unspecified; F41.9 Anxiety disorder, unspecified; Z87.820 Personal history of traumatic brain injury; Z79.01 Long term (current) use of anticoagulants; Z79.4 Long term (current) use of insulin; Z73.6 Limitation of activities due to disability; Z79.84 Long term (current) use of oral hypoglycemic drugs; Z99.2 Dependence on renal dialysis; Z86.718 Personal history of other venous thrombosis and embolism
CPT/HCPCS: 91024

== ENCOUNTER → 2018-07-04 | Outpatient (CLI) | payer OTHER, BC ==
[~2018-07-04] MED LIST changes: +ACETAMINOPHEN500 MG PO; -CARVEDILOL12.5 MG PO; +CARVEDILOL3.125 MG PO; +RENVELA800 MG PO; +RETACRIT3000 UNIT/ INJECTION
[2018-07-04 10:30] VITALS: BP 171/66
--- NOTE | 2018-07-04 11:10 | NUR ---
PT HERE TO SEE DR. CURTIS FOR CLINIC VISIT. REPORTS DOING WELL AT HOME WITH [facility]UR[facility] ASSISTING WITH WOUND CARE AND OTHER NEEDS. USES [facility] TO TRANSFER PT. WOUNDS ON BUTTOCKS APPEAR HEALING AND SCARRED OVER EXCEPT ONE SLIGHT CREASE ON UPPER POSTERIOR RIGHT THIGH WHICH APPEARS TO BE MISSING TOP LAYER OF SKIN. USING DESITIN OINTMENT ADVISED TO ALL THE COVER THESE AREAS. L HEEL HAS SLIGHT ODOR. CLEANSED WITH SALINE AND REDRESSED WITH MEPILEX AG AFTER BEING SEEN BY DR. CURTIS. LABS DRAWN PRIOR TO PT'S DISMISSED. COORDINATED NEXT VISIT WITH THE WOULD CLINIC FOR 07/18. USED [facility] TO GET PT TO AND FROM THE CART TODAY. DISMISSED IN STABLE CONDITION WITH .
[2018-07-04 11:45] LABS: ABSOLUTE NEUTROPHILS 5.6 thou/uL (1.4-8.2); BASOPHILS 0.2 % (0.0-2.0); EOSINOPHILS 8.2 % (0.0-3.0); HEMATOCRIT 36.5 % (37.0-47.0); HEMOGLOBIN 11.8 gm/dL (12.0-15.0); LYMPHOCYTES 19.4 % (24.0-44.0); MCH 30.6 pg (26.0-34.0); MCHC 32.5 g/dL (28.0-37.0); MCV 94.1 fL (80.0-100.0); MONOCYTES 9.4 % (1.0-8.0); PLATELET COUNT 406 thou/uL (150-400); POLYS 62.8 % (36.0-66.0); RBC 3.87 mil/uL (4.20-5.00); RDW 18.7 % (10.5-14.5)
== END ==
LOC: OPONC 07-02 06:34
PROVIDERS: Specialist
DX: E11.69 Type 2 diabetes mellitus with other specified complication (principal); M86.172 Other acute osteomyelitis, left ankle and foot; E11.51 Type 2 diabetes mellitus with diabetic peripheral angiopathy without gangrene; E11.22 Type 2 diabetes mellitus with diabetic chronic kidney disease; N18.6 End stage renal disease; E11.42 Type 2 diabetes mellitus with diabetic polyneuropathy
CPT/HCPCS: 91018

== ENCOUNTER 2018-07-18 08:57 | Inpatient (IN) | payer OTHER, BC ==
[~2018-07-18] VITALS: Ht 170.2 cm; Wt 90.3 kg
--- NOTE | ~2018-07-18 | HC ---
[facility] [place] [address] CONSULTATION Name: ANGELITA MELISSA Room #: 457-P [facility] IN M.R.#: [id number] Admission: 07/18/18 ������������������ Attend Phys: Rd Portillo MD Discharge: 07/20/18 ������������������ Date of : 36 Report #: [id number] THIS REPORT FOR: //name// CC: Maury Portillo REASON FOR CONSULTATION: End-stage renal disease. REASON FOR PRESENTATION: Altered mental status. HISTORY OF PRESENT ILLNESS: This is a very well-known patient to me. She is a 77-year-old who is maintained on hemodialysis every Monday, , and Monday. She suffered from multiple comorbidities including hypertension, peripheral vascular disease with left heel wound, sacral decubitus. She also has some issues with ischemic digits after an AV fistula was placed. She has DVT and was maintained on warfarin. She presented with acute mental status changes. She was found to have leukocytosis with a white blood cell count of 27.1. The patient is being admitted for further evaluation. I am being consulted to manage her end-stage renal disease. PAST MEDICAL AND SURGICAL HISTORY: 1. End-stage renal disease, maintained on hemodialysis every Monday, and Monday. 2. Hypertension. 3. Chronic pain with pain pump. 4. Hyperlipidemia. 5. Diabetes mellitus. 6. DVT. 7. Severe peripheral vascular disease. 8. Recurrent nosocomial infections. 9. Back surgeries. 10. Rotator cuff surgery. 11. Cholecystectomy. 12. Right knee replacement. 13. Dementia. 14. Thalassemia minor. 15. Hysterectomy. 16. Umbilical hernia repair. 17. Multiple debridements for her peripheral vascular disease. SOCIAL HISTORY: She lives with her . No drug or alcohol abuse. FAMILY HISTORY: Hypertension and diabetes mellitus. MEDICATIONS: Currently, the patient is maintained on the followin. Warfarin. 2. Humalog. [facility] [address] [place] [address] CONSULTATION Name: ANGELITA MELISSA Room #: 457-P [facility] IN ..#: [id number] Admission: 07/18/18 ������������������ Attend Phys: Rd Portillo MD Discharge: 07/20/18 ������������������ Date of : 38 Report #: [id number] 3. Gabapentin. 4. Carvedilol. 5. Hydralazine. 6. Sevelamer. 7. EPO. REVIEW OF SYSTEMS: GENERAL: No fever or chills. CARDIOVASCULAR: No chest pain or palpitation. PULMONARY: No cough or hemoptysis. GASTROINTESTINAL: No nausea or vomiting. NEUROLOGICAL: As per the history of present illness. PHYSICAL EXAMINATION: GENERAL: She is alert. VITAL SIGNS: Blood pressure is 189/90. HEAD AND NECK: No jugular venous distention. Right IJ catheter present. CARDIOVASCULAR: No rub detected. ABDOMEN: Soft, nontender. LOWER EXTREMITIES: Trace +1 edema. Dressing applied over the left heel. LABORATORY VALUES: Reviewed. White blood cell count is down to 17. Sodium was 135, potassium 4.7, BUN is 36, creatinine is 3.8. Blood sugar is 127. Cultures are pending. ASSESSMENT, IMPRESSION AND PLAN: 1. End-stage renal disease. 2. Leukocytosis. 3. Mental status issues. 4. Left heel osteo. 5. Hypertension. 6. Chronic pain syndrome. 7. Peripheral vascular disease. 8. From the renal perspective, we will continue with the usual treatment for the patient, dialysis every Monday, and Monday. 9. Her mental status seems to be just fine and she is back to her baseline. 10. Leukocytosis is being addressed by the primary team and Infectious Disease team. 11. Resume her usual medications including her phosphorus binders and EPO. Currently, anticoagulation is being managed by the primary team. ��������������������������������������������� ���������������������������������������� By: ��������������������������������������������� [id number] Velia Tobar MD /nt
[2018-07-18 08:58] VITALS: BP 129/55
--- NOTE | 2018-07-18 09:41 | NUR ---
DR JACK AT BEDSIDE TALKING WITH PT AND SPOUSE.
[2018-07-18 10:26] LABS: HEMOGLOBIN 10.6 gm/dL (12.0-15.0); MCH 28.7 pg (26.0-34.0); MCHC 32.1 g/dL (28.0-37.0); MCV 89.4 fL (80.0-100.0); PLATELET COUNT 295 thou/uL (150-400); RDW 17.3 % (10.5-14.5); WBC 27.1 thou/uL (4.0-11.0)
[2018-07-18 10:41] LABS: CREATININE 3.1 mg/dL (0.6-1.0); TROPONIN-I 0.08 ng/mL (<0.06)
[2018-07-18 10:43] LABS: POTASSIUM 2.8 mmol/L (3.5-5.1)
[2018-07-18 11:00] LABS: ABSOLUTE NEUTROPHILS 23.8 thou/uL (1.4-8.2); PLATELET ESTIMATE NORMAL
[2018-07-18 11:10] LABS: URINE BILIRUBIN NEGATIVE (Negative); URINE BLOOD 1+ (Negative); URINE CLARITY SL CLOUDY; URINE COLOR YELLOW; URINE GLUCOSE-RANDOM* 3+ (Negative); URINE KETONES NEGATIVE (Negative); URINE LEUKOCYTES-REFLEX TRACE (Negative); URINE NITRITE-REFLEX NEGATIVE (Negative); URINE PROTEIN (DIPSTICK) 3+ (Negative); URINE SPECIFIC GRAVITY 1.015 (1.005-1.035); URINE UROBILINOGEN 0.2 E.U./dl (0.2-1.0)
[2018-07-18 11:31] LABS: AMORPHOUS URATES Few /LPF (None Seen); BACTERIA-REFLEX 1-9 Few /HPF (None Seen); CASTS None Seen /LPF (None Seen); SQUAMOUS None Seen /LPF (0-3); URINE RBC None Seen /HPF (0-2); URINE WBC-REFLEX 6-15 Few /HPF (0-5)
[2018-07-18 14:46] VITALS: BP 135/48
[2018-07-18 15:23] LABS: INR 1.2
[2018-07-18 15:34] VITALS: BP 139/68
[2018-07-18 15:48] VITALS: BP 143/60
--- NOTE | 2018-07-18 17:18 | EKG ---
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 : 1940 Requested By: Norman Holland Order Number: [id number] MD: Delano Robin Measurements Intervals [place] Rate: 90 P: 1 MA: 164 QRS: -42 QRSD: 102 T: 177 QT: 351 QTc: 430 Interpretive Statements Sinus rhythm Abnormal R-wave progression, early transition LVH with secondary repolarization abnormality Compared to ECG 11/14/2016 10:12:22 No significant change was found Electronically Signed On 07-18-2018 17:18:10 CDT by Delano Robin [email or web address] ��������������������������������������������� <ELECTRONICALLY SIGNED> ���������������������������������������� By: Delano Robin MD, [facility] ��������������������������������������������� 07/18/18 3978 0948 0948 Delano Robin MD, [facility] /EPI
[2018-07-18 20:29] VITALS: BP 169/75
--- NOTE | 2018-07-19 02:23 | NUR ---
PT SLEPT MOST OF THE NIGHT PT USED CALL LIGHT EFFECTIVELY WOUND CULTURE SENT DOWN PT DID NOT TRY TO GET UP UNASSISTED.
[2018-07-19 05:09] VITALS: BP 153/72
[2018-07-19 05:51] LABS: ABSOLUTE NEUTROPHILS 13.3 thou/uL (1.4-8.2); BASOPHILS 0.8 % (0.0-2.0); EOSINOPHILS 4.9 % (0.0-3.0); HEMATOCRIT 33.9 % (37.0-47.0); HEMOGLOBIN 10.9 gm/dL (12.0-15.0); LYMPHOCYTES 8.6 % (24.0-44.0); MCV 90.6 fL (80.0-100.0); MONOCYTES 7.7 % (1.0-8.0); PLATELET COUNT 291 thou/uL (150-400); RBC 3.74 mil/uL (4.20-5.00); RDW 17.5 % (10.5-14.5)
[2018-07-19 05:58] LABS: CALCIUM 8.9 mg/dL (8.5-10.1); CREATININE 3.8 mg/dL (0.6-1.0); MAGNESIUM 2.2 mg/dL (1.8-2.4); POTASSIUM 4.7 mmol/L (3.5-5.1)
[2018-07-19 06:02] LABS: INR 1.4; PROTIME 14.7 Seconds (9.3-11.4)
[2018-07-19 07:51] VITALS: BP 138/77
--- NOTE | 2018-07-19 10:15 | NUR ---
chart review. pt been her in past, also been to [facility] past and [facility] as well. cm visited with pt at bedside, she is a & o x 3, with come forgetfulness, pleasant and able to make her needs know. intro to cm, home health, post acute, and dcp. pt reported " from home with , no steps, its ranch style home. have juan lift, hospital bed, walker for in home and wheel chair for outside home. needs assistance with dressing, eating, and take bed bathes. tong manage medication and help with everything. [facility], use private ambulance for transport because could not rely on sharefare. they would just not pick me up or would be late to dialysis. have hh now but cant recall company with. would prefer to go home when dc, am i going to get dialysis today"?/andrew. cm left message with tong and daughter valentin rt dcp. Passed on information to bedside nurse rt pt question about dialysis. dcp pend recommendation vs home with hh
--- NOTE | 2018-07-19 10:47 | NUR ---
Nutrition: Admitted for AMS, Hypokalemia. Seen for consult. Open wound to left heal s/p debridement 03/2018. Stage II p/u to sacrum. K+ WNL. Sarc F positive upon 03/2018 admission and severe muscle wasting noted this admission. Appetite good, intake 75%. Current wt at usual of 199 lbs. Requested Nepro, will order. Will encourage intake of protein foods. With current intake and interventions in place, considered low risk.
--- NOTE | 2018-07-19 11:44 | NUR ---
TOWARDS POC PT A/O X4, VSS, AFEBRILE, PAIN MANAGED BY MEDS, DIALYSIS CATH ON RIGHT CHEST INTACT. WOUND CARE AND DRESSING DONE. ISOLATION INITIATED FOR MRSA CONTACT. ANTICIPATING DIALYSIS TODAY. NO CONCERNS VOICED, WILL CONTINUE TO MONITOR.
--- NOTE | 2018-07-19 12:36 | HC ---
[facility] [place] [place] [address] CONSULTATION Name: ANGELITA MELISSA Room #: 457-P [facility] IN M.R.#: [id number] Admission: 07/18/18 ������������������ Attend Phys: Rd Portillo MD Discharge: ������������������ Date of : 38 Report #: [id number] THIS REPORT FOR: //name// CC: Maury Portillo DATE OF SERVICE: 07/18/2018 INFECTIOUS DISEASE CONSULTATION REASON FOR CONSULTATION: I was asked to evaluate concerning sepsis, leukocytosis. 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 In first week of March, she underwent surgical debridement of her left calcaneus for underlying osteomyelitis. She received prolonged IV antibiotic therapy followed by oral antibiotic therapy. She has been off antibiotics about one month. Had been doing reasonably well at home with wound care to her left heel. Also, has healing wounds to her buttock region. She was seen 2 weeks ago in the outpatient clinic and was doing reasonably well. Now presents with the above issues. The patient this evening was alert and cooperative. She is mildly confused, but seemed to be back to her baseline. No headache, cough, or sputum production. No nausea, vomiting, or diarrhea. Minimal urine output. Complains of perianal discomfort as before. Not much pain in her left heel. REVIEW OF SYSTEMS: A 10-point review is negative other than what is described above. ALLERGIES: AMITRIPTYLINE, ABILIFY, CELEBREX, HYDROCHLOROTHIAZIDE, LEVAQUIN, METHADONE, REGLAN, PIROXICAM, and AMBIEN. MEDICATIONS: As noted on her MAR, now on vancomycin and Zosyn. She also continues on her Coumadin and insulin. PAST MEDICAL HISTORY: Chronic back pain with implantable pump, closed head injury, rotator cuff surgery, cholecystectomy, right knee replacement, hypertension, hyperlipidemia, end-stage renal disease, dementia, DVT, chronic back pain, depression, diabetes, thalassemia minor, hysterectomy, umbilical hernia repair, chronic anemia, gastroesophageal reflux, left calcaneus osteomyelitis, and bilateral buttock wounds. FAMILY HISTORY: Noncontributory. [address] [address] CONSULTATION Name: ANGELITA MELISSA Room #: 457-P [facility] IN M.R.#: [id number] Admission: 07/18/18 ������������������ Attend Phys: Rd Portillo MD Discharge: ������������������ Date of : 38 Report #: [id number] SOCIAL HISTORY: Nonsmoker, no significant alcohol intake. PHYSICAL EXAMINATION: VITAL SIGNS: Afebrile, maximum temperature 99.7, hemodynamically stable. GENERAL: Alert and cooperative. Moderately obese. Left heel wound with reasonable granulation tissue. Still minimal epithelialization. Perianal skin lesions healed. No palpable adenopathy. HEENT: Eyes, without scleral icterus. Mouth without mucositis. NECK: Supple. LUNGS: Few crackles in the left base posteriorly. HEART: Regular, without murmur, gallop, or rub. ABDOMEN: Obese, soft, nontender. No hepatosplenomegaly or mass. EXTREMITIES: Right chest dialysis catheter without erythema or drainage. NEUROLOGIC: Cranial nerves intact. Strength in upper and lower extremities was markedly reduced. Mood normal. LABORATORY STUDIES: CT of the head, atrophy. Chest x-ray, left lower lobe atelectasis. Blood cultures and foot culture are pending. Sodium 135, potassium 2.8, bicarbonate 30, creatinine 3.1. Troponin 0.08. Hemoglobin 10.6, platelet count 295,000, white count 27.1 with 85% segs, 3% bands. Urinalysis unremarkable. Lactate 1.1. IMPRESSION: Leukocytosis and generalized weakness. Source, left heel versus intra-abdominal source. However, no nausea, vomiting, or diarrhea. She has atelectasis in the lungs without definite infiltrate or increased oxygen requirements. Central venous catheter infection also possible, although this typically is associated with marked leukocytosis. No evidence of urinary tract infection. RECOMMENDATIONS: We will continue broad antibiotic coverage pending culture results. Monitor for C. difficile. Continue to monitor for diarrhea. May need to reimage her left heel. Serial chest x-ray. Serial CBCs. Discussed with nursing at the bedside. ��������������������������������������������� <ELECTRONICALLY SIGNED> ���������������������������������������� By: Wilbert Millan MD ��������������������������������������������� 07/19/18 [id number] Wilbert Millan MD /nt
--- NOTE | 2018-07-19 13:55 | NUR ---
ORDER RECEIVED FOR EVAL AND TREAT. AT BASELINE, Pt USES [facility] FOR TRANSFERS. LIVES WITH . W/C BOUND WITH SEVERE MUSCLE WASTING. Pt REQUIRES ASSIST FOR ADLs AND HAS W/C, WALKER, AND HOSPITAL BED PER CHART. Pt EVALUATED BY PT AT THIS HOSPITAL IN MAR 2018 AND AT THAT TIME HAD BEEN GETTING HH SERVICES BUT WAS NOT DOING MUCH WITH THERAPY. Pt RECENTLY AT [facility] BUT WAS THEN AT HOME PRIOR TO ADMIT HERE. Pt AT FUNCTIONAL BASELINE. NO ACUTE PT NEEDS IDENTIFIED. ACUTE PT TO SIGN OFF.
[2018-07-19 14:40] VITALS: BP 184/84
--- NOTE | 2018-07-19 15:32 | NUR ---
WOUND CONSULT: PT. WAS SEEN TODAY BY DR. LENNON AND MYSELF. PT. IS WELL KNOWN TO THE WOUND CARE TEAM. PT. HAS A RESOLVING STAGE 4 PRESSURE ULCER TO HER LEFT HEEL. THERE IS GRANULATION TISSUE PRESENT IN THE WOUND BED. RECOMMENDATIONS: WOUND CARE TO LEFT HEEL: GENTLY CLEANSE AREA WITH WOUND CLEANSER OR NORMAL SALINE, APPLY PURACOL AG TO WOUND BED, COVER WITH OPTIFOAM, COMPLETE CARES DAILY AND PRN. PT. AND STAFF NURSE WERE INSTRUCTED ON PLAN OF CARE.
[2018-07-19 23:07] LABS: HEP B SURFACE Ab(ANTI-HBS Reactive (()); HEPATITIS B SURFACE AG Negative (Negative)
--- NOTE | 2018-07-20 01:02 | NUR ---
PT GIVEN NORCO FOR PAIN PT WAS ABLE TO REST WELL AFTER DIALYSIS NO ISSUES OVERNIGHT.
[2018-07-20 04:06] LABS: INR 1.4; PROTIME 14.4 Seconds (9.3-11.4)
[2018-07-20 05:01] VITALS: BP 196/77
[2018-07-20 08:17] VITALS: BP 189/90
[2018-07-20 10:17] VITALS: BP 183/80
--- NOTE | 2018-07-20 12:14 | NUR ---
Pt's spouse here and both are anxious to dc to home today. Discussed with the attending. Awaiting clearance from [facility]. TRES to arrange for non emergent [facility] for ride home at [place] and have dc assistant media planner fax updated flow sheets to her dialysis clinic. Pt and spouse have arrangements for flight at 8am tomorrow to [place] with dialysis there.
[2018-07-20 14:29] VITALS: BP 166/73
[2018-07-20] MEDS ORDERED: HYDRALAZINE 5050 MG PO (14:44)
[2018-07-20] MEDS ORDERED: CARVEDILOL12.5 MG PO (14:44)
[2018-07-20 15:03] VITALS: BP 183/80
--- NOTE | 2018-07-20 15:45 | NUR ---
DISCHARGE PLANNING. ANTICIPATED DISCHARGE TODAY. DISCHARGE ORDERS OBTAINED. CALL PLACED TO UNIT. PER UNIT RN, SHE IS AWAITING CLEARANCE FROM INFECTIOUS DISEASE. DISCHARGE ORDERS, DISCHARGE SUMMARY, DIALYSIS FLOWSHEETS, DIALYSIS CLINICALS AND H&P FAXED TO [facility] FOR [facility]. CALL PLACED TO [facility] TO NOTIFY, STATES WILL NOTIFY DIALYSIS TEAM. CALL RECEIVED FROM UNIT RN, ID ON UNIT COMPLETING DC ABX PLAN. FD TO TRANSPORT PATIENT TO HOME [phone] HOURS. UNIT RN NOTIFIED.
[2018-07-20 16:15] VITALS: BP 183/80
--- NOTE | 2018-07-20 16:34 | NUR ---
PT'S BP WAS ELEVATED THIS MORNING, TREATED WITH MEDICATION. PT SPOUSE VERY INSISTENT THAT PT MUST DISCHARGE TODAY THEY HAVE A FLIGHT TO [place] IN THE MORNING. PT. GIVEN DC INSTRUCTIONS AND RX'S. PT LEFT UNIT VIA [facility].
--- NOTE | 2018-07-25 07:38 | HC ---
[facility] [place] [address] [address] CONSULTATION Name: ANGELITA MELISSA Room #: 457-P [facility] IN M.R.#: [id number] Admission: 07/18/18 ������������������ Attend Phys: Rd Portillo MD Discharge: 07/20/18 ������������������ Date of : 38 Report #: [id number] THIS REPORT FOR: //name// CC: Maury Portillo DATE OF SERVICE: 07/19/2018 CHIEF COMPLAINT: Left heel ulceration and gluteal ulceration. HISTORY OF PRESENT ILLNESS: This is a 77-year-old female patient with whom I am familiar, who has had ongoing ulcerations to her left heel with underlying osteomyelitis in gluteal sacral region. She has been admitted to the hospital for acute toxic metabolic encephalopathy and urinary tract infection. I have been asked to see her again with regard to wound care. She is awake and alert and fairly pleasant at this time. Her is at the bedside, which is very typical as he provides very attentive care for her. The patient's past medical history is significant for longstanding ulceration to her left heel with underlying calcaneal osteomyelitis. She has undergone previous surgical debridement in this area. PAST MEDICAL HISTORY: She has a history of multiple back surgeries and implanted pain pump, history of closed head injury, cholecystectomy, right knee replacement, hypertension, hyperlipidemia, chronic kidney disease stage 3, dementia, DVT, chronic back pain, depression, diabetes mellitus, hysterectomy, umbilical hernia repair, gastroesophageal reflux, and end-stage renal disease, requiring dialysis 3 days per week. SOCIAL HISTORY: Negative for alcohol or tobacco use. She is , accompanied by her . FAMILY HISTORY: Noncontributory. MEDICATIONS: Include vitamin C, Coumadin, NovoLog, Aricept, Neurontin, Effexor, Coreg, [place], hydralazine, Retacrit, Renvela. ALLERGIES: AMITRIPTYLINE, ABILIFY, CELEBREX, HYDROCHLOROTHIAZIDE, LEVAQUIN, METHADONE, REGLAN, PIROXICAM, ZOLPIDEM. REVIEW OF SYSTEMS: CONSTITUTIONAL: The patient denies fever, chills or weight loss. NEUROLOGICAL: The patient denies focal weakness. ENT: The patient denies earache, nasal drainage or sore throat. CARDIOVASCULAR: The patient denies chest pain, palpitations, diaphoresis. PULMONARY: The patient denies cough or shortness of breath. GASTROINTESTINAL: The patient denies nausea or abdominal pain. [facility] [address] [place] [address] CONSULTATION Name: ANGELITA MELISSA Room #: 457-P [facility] IN M.R.#: [id number] Admission: 07/18/18 ������������������ Attend Phys: Rd Portillo MD Discharge: 07/20/18 ������������������ Date of : 38 Report #: [id number] ORTHOPEDIC: The patient is aware of the ulceration on her gluteal region as well as her left heel. Other systems in a 14-point review of systems are negative. PHYSICAL EXAMINATION: VITAL SIGNS: At this time include temperature 98.2, pulse 90, respiratory rate of 22, blood pressure 194/84. GENERAL: This is a chronically ill-appearing female patient, who appears to be in no distress. HEAD: Normocephalic. Nose and throat is clear. NECK: Supple. LUNGS: Clear. HEART: Regular rhythm. ABDOMEN: Soft. Bowel sounds present. EXTREMITIES: Examination of the lower extremities demonstrates ulceration to her left heel. It is stage 4, although substantially improved since the last time I saw her, is mostly covered with granulation tissue, a little bit of fibrinous material. I do not feel any spiculated bone to palpation. Sacral gluteal ulcerations are all now epithelialized. CLINICAL IMPRESSION: 1. Stage 4 pressure ulceration to left heel with history of underlying calcaneal osteomyelitis, much improved. 2. Gluteal sacral ulcerations, much improved. 3. End-stage renal disease, chronic dialysis. 4. Diabetes mellitus. 5. Advanced debility. 6. Severe peripheral vascular disease. RECOMMENDATIONS: At this point in time, we will recommend just simple moisture barrier cream to the sacral gluteal region, low air loss mattress with q. 2 hour turning and repositioning. For the left heel, we will recommend Fibracol or Puracol with bordered foam as a secondary dressing. She will need PRAFO boots for pressure prophylaxis. She will need ongoing nutritional support. Continue current medications. I appreciate being asked to see her in consultation. We will review additional laboratory studies and x-ray findings when available. ��������������������������������������������� <ELECTRONICALLY SIGNED> ���������������������������������������� By: Arturo Collins MD ��������������������������������������������� 07/25/18 [id number] [id number] Arturo Collins MD /nt
== END 2018-07-20 17:30 | disposition home or self-care (01) | DRG 871 ==
LOC: ER 08:57 → EROBS 12:33 → 4W 12:33
PROVIDERS: Emergency Medicine; Hospitalist; Nurse Practitioner; ADMIT Internal Medicine
PROC: 5A09357 Assistance with Respiratory Ventilation, Less than 24 Consecutive Hours, Continuous Positive Airway Pressure (ICD-10-PCS; principal; 2018-07-19)
PROC: 5A1D70Z Performance of Urinary Filtration, Intermittent, Less than 6 Hours Per Day (ICD-10-PCS; principal; 2018-07-19)
DX: A41.9 Sepsis, unspecified organism (principal); L89.624 Pressure ulcer of left heel, stage 4; N18.6 End stage renal disease; G92 Toxic encephalopathy; N39.0 Urinary tract infection, site not specified; M86.8X8 Other osteomyelitis, other site; I12.0 Hypertensive chronic kidney disease with stage 5 chronic kidney disease or end stage renal disease; Z96.652 Presence of left artificial knee joint; E78.5 Hyperlipidemia, unspecified; F03.90 Unspecified dementia, unspecified severity, without behavioral disturbance, psychotic disturbance, mood disturbance, and anxiety; M54.9 Dorsalgia, unspecified; F32.9 Major depressive disorder, single episode, unspecified; E11.22 Type 2 diabetes mellitus with diabetic chronic kidney disease; K21.9 Gastro-esophageal reflux disease without esophagitis; E87.6 Hypokalemia; D72.829 Elevated white blood cell count, unspecified; E11.69 Type 2 diabetes mellitus with other specified complication; L98.419 Non-pressure chronic ulcer of buttock with unspecified severity; E11.42 Type 2 diabetes mellitus with diabetic polyneuropathy; G89.4 Chronic pain syndrome; M62.84 Sarcopenia; D63.8 Anemia in other chronic diseases classified elsewhere; E11.65 Type 2 diabetes mellitus with hyperglycemia; E66.9 Obesity, unspecified; E11.51 Type 2 diabetes mellitus with diabetic peripheral angiopathy without gangrene; Z90.49 Acquired absence of other specified parts of digestive tract; Z86.718 Personal history of other venous thrombosis and embolism; Z79.4 Long term (current) use of insulin; Z90.710 Acquired absence of both cervix and uterus; Z88.1 Allergy status to other antibiotic agents; Z88.8 Allergy status to other drugs, medicaments and biological substances; Z87.828 Personal history of other (healed) physical injury and trauma; Z83.3 Family history of diabetes mellitus; Z82.49 Family history of ischemic heart disease and other diseases of the circulatory system; Z79.01 Long term (current) use of anticoagulants; Z68.31 Body mass index [BMI] 31.0-31.9, adult; Z79.899 Other long term (current) drug therapy; Z99.2 Dependence on renal dialysis
CPT/HCPCS: 10045; 32100